=== PATIENT | male | born 2000 | race African-American/Black ===

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

== ENCOUNTER 2021-09-03 00:32 | Emergency (ER) | payer BC, OTHER ==
[2021-09-03 00:39] VITALS: BP 115/65; PULSE 56; TEMP 98; BMI 26.5
== END 2021-09-03 02:38 | disposition home or self-care (01) ==
LOC: FER 00:32
DX: L03.031 Cellulitis of right toe (principal)
CPT/HCPCS: 73660-TC-FY; 99283-25

== ENCOUNTER 2021-09-10 23:20 | Emergency (ER) | payer BC ==
[2021-09-10 23:28] VITALS: BP 108/62; PULSE 87; TEMP 98; BMI 27.2
[2021-09-10] MEDS ORDERED: LIDOCAINE HCL 1%, 10 MG/ML (20ML VIAL) ONE (23:59)
[2021-09-11] MEDS ORDERED: CLINDAMYCIN HCL 300 MG CAPSULE PO ONE (01:00)
[2021-09-11] MEDS ORDERED: CLINDAMYCIN HCL 150 MG CAPSULE (FP) ONE (01:04)
== END 2021-09-11 01:13 | disposition home or self-care (01) ==
LOC: FER 23:20
PROC: 0X9J3ZZ Drainage of Right Hand, Percutaneous Approach (ICD-10-PCS; principal; 2021-09-10)
DX: L02.611 Cutaneous abscess of right foot (principal)
CPT/HCPCS: 87070; 87186; 87205; 99283-25

== ENCOUNTER 2022-08-11 02:15 | Emergency (ER) | payer BC ==
[2022-08-11] MEDS ORDERED: DEXAMETHASONE 4 MG TABLET (FP) PO ONE (02:28)
[2022-08-11] MEDS ORDERED: IBUPROFEN 600 MG TABLET (FP) PO ONE ×2 (02:28→02:36)
[2022-08-11 02:33] VITALS: BP 113/61; PULSE 85; RESP 18; TEMP 98.1; BMI 25.8
[2022-08-11] MEDS ORDERED: DEXAMETHASONE 4 MG TABLET (FP) ONE (02:35)
[2022-08-11] MEDS ORDERED: SODIUM CHLORIDE 0.9% 500 ML INFUS.BAG IV ONE (02:42)
[2022-08-11] MEDS ORDERED: METOCLOPRAMIDE HCL INJECTION 10 MG/2 ML VIAL IVPUSH ONE (02:42)
[2022-08-11] MEDS ORDERED: ACETAMINOPHEN 1000 MG/100 ML BAG IVPB ONE (02:43)
[2022-08-11] MEDS ORDERED: METOCLOPRAMIDE HCL INJECTION 10 MG/2 ML VIAL ONE (02:50)
[2022-08-11] MEDS ORDERED: ACETAMINOPHEN INJECTION 100 ML IVPB ONE (02:50)
[2022-08-11 04:03] LABS: ALBUMIN 4.5 g/dl (3.4-5.0); CALCIUM 9.6 mg/dL (8.5-10.1)
[2022-08-11 04:07] LABS: CREATININE 1.5 mg/dL (0.55-1.3)
[2022-08-11 04:08] LABS: BILIRUBIN,TOTAL 0.7 mg/dL (0.2-1); TOT PROT 7.8 g/dl (6.4-8.2)
[2022-08-11 04:23] LABS: BASO % 0.5 % (0-2.0); HEMATOCRIT 44.9 % (35.4-49); HEMOGLOBIN 15.7 GM/dL (11.7-16.9); LYMPH % 8.8 % (8-40); MCH 28.4 pg (25.7-33.7); MEAN CELL VOLUME 81.1 fl (80-96); MEAN PLT VOLUME 8.8 fl (7.5-11.1); MONO % 12.2 % (3.8-10.2); NEUT % 77.5 % (42.8-82.8); PLATELET COUNT 222 10^3/uL (134-434); RBC 5.54 M/mm3 (4.00-5.60); RDW 14.1 % (11.9-15.9); WHITE BLOOD COUNT 10.1 K/mm3 (4.0-10.0)
== END 2022-08-11 04:22 | disposition home or self-care (01) ==
LOC: FER 02:15
PROC: 3E0333Z Introduction of Anti-inflammatory into Peripheral Vein, Percutaneous Approach (ICD-10-PCS; principal; 2022-08-11)
PROC: 3E033GC Introduction of Other Therapeutic Substance into Peripheral Vein, Percutaneous Approach (ICD-10-PCS; 2022-08-11)
DX: U07.1 COVID-19 (principal)
CPT/HCPCS: 0241U-QW; 36415; 71045-TC-FY; 80053; 85025; 93005; 93010; 99285-25

== ENCOUNTER 2023-05-23 00:12 | Emergency (ER) | payer BC, OTHER ==
[2023-05-23 00:20] VITALS: BP 102/56; PULSE 68; RESP 16; TEMP 97.9; BMI 25.9
[2023-05-23] MEDS ORDERED: IBUPROFEN 400 MG TABLET (FP) PO ONE ×2 (00:37→00:39)
== END 2023-05-23 01:22 | disposition home or self-care (01) ==
LOC: FER 00:12
DX: S16.1XXA Strain of muscle, fascia and tendon at neck level, initial encounter (principal); S29.012A Strain of muscle and tendon of back wall of thorax, initial encounter; R51.9 Headache, unspecified; M54.2 Cervicalgia; M54.9 Dorsalgia, unspecified; V87.7XXA Person injured in collision between other specified motor vehicles (traffic), initial encounter
CPT/HCPCS: 72050-TC-FY; 72070-TC-FY; 99283-25